=== PATIENT | female | born 1990 | race Two or more races ===

== ENCOUNTER 2020-11-06 15:05 | Outpatient (CLI) | payer OTHER | END 2020-11-06 16:09 | disposition home or self-care (01) | LOC: OFIC 805 15:05 | PROVIDERS: ATTEND Otolaryngology Otology & Neurotology | DX: H80.22 Cochlear otosclerosis, left ear (principal); H90.12 Conductive hearing loss, unilateral, left ear, with unrestricted hearing on the contralateral side ==

== ENCOUNTER 2020-11-10 15:46 | Outpatient (CLI) | payer OTHER ==
[2020-11-24] MEDS ORDERED: DROSPIRENONE-E1 EAC1 PO (16:03)
== END 2020-11-10 16:08 | disposition home or self-care (01) ==
LOC: TOM 15:46
PROVIDERS: ATTEND Otolaryngology Otology & Neurotology
DX: H90.12 Conductive hearing loss, unilateral, left ear, with unrestricted hearing on the contralateral side (principal)

== ENCOUNTER 2020-12-01 05:48 | Day surgery (SDC) | payer OTHER ==
[~2020-12-01 05:48] MED LIST: DROSPIRENONE-E1 EAC1 PO
[2020-12-01] MEDS ORDERED: ZITHROMAX TRI-500 MG PO (09:53)
[2020-12-01] MEDS ORDERED: ZOFRAN8 MG PO (09:54)
[2020-12-01] MEDS ORDERED: MOTION SICKNESS25 M5 PO (09:55)
== END 2020-12-01 14:50 | disposition home or self-care (01) ==
LOC: CIR.AMB 05:48
PROVIDERS: ATTEND Otolaryngology Otology & Neurotology
DX: H90.12 Conductive hearing loss, unilateral, left ear, with unrestricted hearing on the contralateral side (principal); H80.02 Otosclerosis involving oval window, nonobliterative, left ear; H80.22 Cochlear otosclerosis, left ear; Z20.822 Contact with and (suspected) exposure to COVID-19

== ENCOUNTER 2020-12-06 12:04 | Outpatient (CLI) | payer OTHER ==
[~2020-12-06 12:04] MED LIST changes: +MOTION SICKNESS25 M5 PO; +ZITHROMAX TRI-500 MG PO; +ZOFRAN8 MG PO
== END 2020-12-06 13:01 | disposition home or self-care (01) ==
LOC: OFIC 805 12:04
PROVIDERS: ATTEND Otolaryngology Otology & Neurotology
DX: H80.22 Cochlear otosclerosis, left ear (principal); H90.11 Conductive hearing loss, unilateral, right ear, with unrestricted hearing on the contralateral side

== ENCOUNTER 2021-01-03 10:22 | Outpatient (CLI) | payer OTHER | END 2021-01-03 12:41 | disposition home or self-care (01) | LOC: OFIC 805 10:22 | PROVIDERS: ATTEND Otolaryngology Otology & Neurotology | DX: H80.22 Cochlear otosclerosis, left ear (principal); H90.12 Conductive hearing loss, unilateral, left ear, with unrestricted hearing on the contralateral side ==

== ENCOUNTER 2021-08-07 14:21 | Outpatient (CLI) | payer OTHER | END 2021-08-07 16:26 | disposition home or self-care (01) | LOC: PRENATAL 14:21 | PROVIDERS: ATTEND Obstetrics & Gynecology Maternal & Fetal Medicine | DX: Z36.89 Encounter for other specified antenatal screening (principal); O36.80X1 Pregnancy with inconclusive fetal viability, fetus 1; Z3A.13 13 weeks gestation of pregnancy ==

== ENCOUNTER 2021-09-25 13:17 | Outpatient (CLI) | payer OTHER | END 2021-09-25 14:29 | disposition home or self-care (01) | LOC: PRENATAL 13:17 | PROVIDERS: ATTEND Obstetrics & Gynecology Maternal & Fetal Medicine | DX: O35.0XX0 Maternal care for (suspected) central nervous system malformation in fetus, not applicable or unspecified (principal); O35.3XX0 Maternal care for (suspected) damage to fetus from viral disease in mother, not applicable or unspecified ==

== ENCOUNTER 2021-12-18 15:31 | Outpatient (CLI) | payer OTHER | END 2021-12-18 16:18 | disposition home or self-care (01) | LOC: PRENATAL 15:31 | PROVIDERS: ATTEND Obstetrics & Gynecology Maternal & Fetal Medicine | DX: O26.849 Uterine size-date discrepancy, unspecified trimester (principal); O35.0XX0 Maternal care for (suspected) central nervous system malformation in fetus, not applicable or unspecified; O36.8199 Decreased fetal movements, unspecified trimester, other fetus; Z3A.32 32 weeks gestation of pregnancy ==

== ENCOUNTER 2022-01-24 18:30 | Inpatient (IN) | payer OTHER ==
[~2022-01-24] VITALS: Ht 165.1 cm; Wt 75.7 kg
[2022-01-24] MEDS ORDERED: PRENATAL TABLE1 EAC1 (21:47)
[2022-01-24] MEDS ORDERED: FERRETTS I40 MG/15 M (21:48)
[2022-01-24] MEDS ORDERED: MIRALAX17 GM (21:50)
[2022-01-28] MEDS ORDERED: FUSION PLUS CA1 EACH PO (09:57)
== END 2022-01-28 13:37 | disposition home or self-care (01) | DRG 807 ==
LOC: OBS/DEL 18:30 → LDR 19:34 → OBS/DEL 19:34 → OB/GYN 01-26 18:59
PROVIDERS: ADMIT Student in an Organized Health Care Education/Training Program; ATTEND Student in an Organized Health Care Education/Training Program
PROC: 10E0XZZ Delivery of Products of Conception, External Approach (ICD-10-PCS; principal; 2022-01-24)
PROC: 0KQM0ZZ Repair Perineum Muscle, Open Approach (ICD-10-PCS; 2022-01-24)
PROC: 0UQG7ZZ Repair Vagina, Via Natural or Artificial Opening (ICD-10-PCS; 2022-01-24)
PROC: 3E0P7VZ Introduction of Hormone into Female Reproductive, Via Natural or Artificial Opening (ICD-10-PCS; 2022-01-24)
PROC: 3E033VJ Introduction of Other Hormone into Peripheral Vein, Percutaneous Approach (ICD-10-PCS; 2022-01-24)
PROC: 4A1HXCZ Monitoring of Products of Conception, Cardiac Rate, External Approach (ICD-10-PCS; 2022-01-24)
DX: O70.1 Second degree perineal laceration during delivery (principal); Z37.0 Single live birth; O99.820 Streptococcus B carrier state complicating pregnancy; O13.3 Gestational [pregnancy-induced] hypertension without significant proteinuria, third trimester; Z3A.37 37 weeks gestation of pregnancy; Z20.822 Contact with and (suspected) exposure to COVID-19

== ENCOUNTER 2024-06-23 14:39 | Outpatient (CLI) | payer OTHER ==
[~2024-06-23 14:39] MED LIST changes: +FERRETTS I40 MG/15 M; +FUSION PLUS CA1 EACH PO; +MIRALAX17 GM; +PRENATAL TABLE1 EAC1
== END 2024-06-23 14:40 | disposition home or self-care (01) ==
LOC: PRENATAL 14:39
PROVIDERS: ATTEND Obstetrics & Gynecology Maternal & Fetal Medicine
DX: O36.80X0 Pregnancy with inconclusive fetal viability, not applicable or unspecified (principal); Z36.82 Encounter for antenatal screening for nuchal translucency; O09.529 Supervision of elderly multigravida, unspecified trimester; Z3A.13 13 weeks gestation of pregnancy

== ENCOUNTER → 2024-08-20 09:55 | Outpatient (CLI) | payer OTHER | END | disposition home or self-care (01) | LOC: PRENATAL 09:55 | PROVIDERS: ATTEND Obstetrics & Gynecology Maternal & Fetal Medicine | DX: O44.00 Complete placenta previa NOS or without hemorrhage, unspecified trimester (principal); O09.529 Supervision of elderly multigravida, unspecified trimester; Z3A.21 21 weeks gestation of pregnancy ==

== ENCOUNTER 2024-10-12 11:44 | Outpatient (CLI) | payer OTHER | END 2024-10-12 11:46 | disposition home or self-care (01) | LOC: PRENATAL 11:44 | PROVIDERS: ATTEND Obstetrics & Gynecology Maternal & Fetal Medicine | DX: O26.849 Uterine size-date discrepancy, unspecified trimester (principal); O09.529 Supervision of elderly multigravida, unspecified trimester; O99.019 Anemia complicating pregnancy, unspecified trimester; Z3A.29 29 weeks gestation of pregnancy ==

== ENCOUNTER 2024-11-26 10:19 | Outpatient (CLI) | payer OTHER | END 2024-11-26 10:30 | disposition home or self-care (01) | LOC: PRENATAL 10:19 | PROVIDERS: ATTEND Obstetrics & Gynecology Maternal & Fetal Medicine | DX: O26.849 Uterine size-date discrepancy, unspecified trimester (principal); O36.8199 Decreased fetal movements, unspecified trimester, other fetus; O09.529 Supervision of elderly multigravida, unspecified trimester; Z3A.36 36 weeks gestation of pregnancy ==

== ENCOUNTER 2024-12-14 21:00 | Inpatient (IN) | payer OTHER ==
[~2024-12-14] VITALS: Ht 165.1 cm; Wt 78.0 kg
[2024-12-14 21:11] VITALS: BP 145/86
[2024-12-14] MEDS ORDERED: LABETALOL HCL200 MG PO (22:06)
[2024-12-14] MEDS ORDERED: CHILDREN'S ASPI81 MG PO (22:08)
[2024-12-14 22:12] LABS: BASO % 0.5 % (0.1-1.2); EOS # 0.11 (0.04-0.54); EOS % 1.2 % (0.7-7.0); HEMATOCRIT 33.5 % (34.1-44.9); HEMOGLOBIN 10.9 g/dL (11.2-15.7); LYMPH # 2.46 (1.18-3.74); LYMPH % 25.9 % (19.3-53.1); MEAN CORPUSCULAR HEMOGLOBIN 27.2 pg (25.6-32.2); MONO % 6.3 % (4.7-12.5); NEUT # 6.25 (1.56-6.13); NEUT % 65.7 % (34.0-71.1); PLATELET COUNT 285 K/uL (163-369); RED BLOOD COUNT 4.01 M/uL (3.93-5.22); RED CELL DISTRIBUTION WIDTH 13.6 % (11.6-14.4)
[2024-12-14] MEDS ORDERED: MISOPROSTOL 25 MCG/4 ML GEL.W.APPL VAG ONE (22:15)
[2024-12-14 22:32] LABS: INR < 0.93; PARTIAL THROMBOPLASTIN TIME 21.1 SECONDS (22.0-34.0); PROTHROMBIN TIME 9.8 SECONDS (9.0-11.5)
[2024-12-14 22:38] LABS: ALBUMIN 2.7 gm/dL (3.4-5.0); BILIRUBIN TOTAL 0.56 mg/dL (0.3-1.2); CALCIUM 8.7 mg/dL (8.5-10.1); CREATININE SERUM 0.51 mg/dL (0.55-1.02); GFR 136.45; GLOBULINA 3.5 G/DL (2.4-3.5); POTASSIUM 3.48 mEq/L (3.5-5.1); TOTAL PROTEIN 6.2 gm/dL (6.4-8.2)
[2024-12-14] MEDS ORDERED: LABETALOL HCL 200 MG TABLET PO ONE (22:45)
[2024-12-14] MEDS ORDERED: RINGERS SOLUTION,LACTATED 1,000 ML IV SCH (22:45)
[2024-12-14 23:13] LABS: URINE APPEARANCE Clear; URINE BILIRRUBIN Negative (NEGATIVE); URINE BLOOD Negative; URINE COLOR Yellow; URINE GLUCOSE Negative (NEGATIVE); URINE KETONE 15 (NEGATIVE); URINE LEUKOCYTE Negative; URINE NITRATE Negative; URINE PROTEIN Negative (NEGATIVE); URINE UROBILINOGEN 0.2 E.U./dl
[2024-12-14 23:17] LABS: URINE BACTERIA 307.1 uL (0.0-1933); URINE EPITHELIAL CELLS 10.2 uL (0.0-38.8); URINE WBC 5.2 uL (0.0-23.2)
[2024-12-14 23:32] VITALS: BP 129/79
[2024-12-15 00:06] LABS: URINE CAST 0.14 uL (0.0-1.40); URINE RBC 0.4 uL (0.0-20.8)
[2024-12-15 04:00] VITALS: BP 137/89
[2024-12-15 07:48] VITALS: BP 137/89
[2024-12-15] MEDS ORDERED: OXYTOCIN 500 ML IV SCH (08:00)
[2024-12-15 11:35] VITALS: BP 135/86
[2024-12-15] MEDS ORDERED: MORPHINE SULFATE 4 MG/ML CARTRIDGE IV ONE (13:30)
[2024-12-15] MEDS ORDERED: OXYTOCIN 20 UNITS/1000ML RL PIGGYBAG IV ONE (13:48)
[2024-12-15] MEDS ORDERED: LIDOCAINE HCL 1% 10ML VIAL ONE (13:48)
[2024-12-15] MEDS ORDERED: ERYTHROMYCIN BASE OPHT 1GM EACH TUBE OP ONE ×2 (13:48→15:15)
[2024-12-15] MEDS ORDERED: CHLORHEXIDINE GLUCONATE 120 ML BOTTLE TOP ONE (13:48)
[2024-12-15] MEDS ORDERED: IBUprofen 400 MG TABLET PO PRN (14:30)
[2024-12-15] MEDS ORDERED: OxyCODONE HCL 5 MG TABLET (ROXICODONE) PO PRN (14:30)
[2024-12-15] MEDS ORDERED: CHLORHEXIDINE GLUCONATE 120 ML BOTTLE TP SCH (14:30)
[2024-12-15] MEDS ORDERED: OXYTOCIN 1,000 ML IV SCH (14:30)
[2024-12-15 15:33] VITALS: BP 154/87
[2024-12-15] MEDS ORDERED: ACETAMINOPHEN 325 MG TABLET PO SCH (17:00)
[2024-12-15] MEDS ORDERED: CARBOPROST TROMETHAMINE 250 MCG/ML AMPUL IM ONE ×2 (17:57→18:00)
[2024-12-15 20:21] VITALS: BP 145/85
[2024-12-15 23:17] LABS: BASO % 0.2 % (0.1-1.2); EOS # 0.06 (0.04-0.54); EOS % 0.4 % (0.7-7.0); HEMATOCRIT 30.3 % (34.1-44.9); LYMPH # 1.79 (1.18-3.74); NEUT # 12.07 (1.56-6.13); NEUT % 80.9 % (34.0-71.1); PLATELET COUNT 272 K/uL (163-369); RED CELL DISTRIBUTION WIDTH 13.4 % (11.6-14.4)
[2024-12-16 01:56] VITALS: BP 137/91
[2024-12-16 07:21] LABS: BASO % 0.4 % (0.1-1.2); EOS % 0.8 % (0.7-7.0); HEMATOCRIT 27.9 % (34.1-44.9); HEMOGLOBIN 9.1 g/dL (11.2-15.7); LYMPH # 3.07 (1.18-3.74); LYMPH % 26.1 % (19.3-53.1); MONO # 0.91 (0.24-0.82); MONO % 7.7 % (4.7-12.5); NEUT # 7.59 (1.56-6.13); NEUT % 64.5 % (34.0-71.1); PLATELET COUNT 254 K/uL (163-369); RED BLOOD COUNT 3.37 M/uL (3.93-5.22); RED CELL DISTRIBUTION WIDTH 13.8 % (11.6-14.4)
[2024-12-16] MEDS ORDERED: PNV,CALCIUM 72/IRON/FOLIC ACID 1 TAB TABLET PO SCH (09:00)
[2024-12-16] MEDS ORDERED: IRON/V.C/V.B12/FOLIC A/VIT. E 1 CAPL CAPLET PO SCH (09:00)
[2024-12-16] MEDS ORDERED: LABETALOL HCL 200 MG TABLET PO SCH (09:00)
[2024-12-16 12:52] VITALS: BP 140/90
[2024-12-16 17:10] VITALS: BP 127/86
[2024-12-17 03:10] VITALS: BP 131/82
[2024-12-17 09:50] VITALS: BP 130/80
== END 2024-12-17 13:31 | disposition home or self-care (01) | DRG 807 ==
LOC: LDR 21:00 → OB/GYN 12-15 15:07
PROVIDERS: Obstetrics & Gynecology; ADMIT Student in an Organized Health Care Education/Training Program; ATTEND Student in an Organized Health Care Education/Training Program
PROC: 4A1HXCZ Monitoring of Products of Conception, Cardiac Rate, External Approach (ICD-10-PCS; 2024-12-14)
PROC: 3E0P7VZ Introduction of Hormone into Female Reproductive, Via Natural or Artificial Opening (ICD-10-PCS; 2024-12-14)
PROC: 10E0XZZ Delivery of Products of Conception, External Approach (ICD-10-PCS; principal; 2024-12-15)
PROC: 3E033VJ Introduction of Other Hormone into Peripheral Vein, Percutaneous Approach (ICD-10-PCS; 2024-12-15)
DX: O13.4 Gestational [pregnancy-induced] hypertension without significant proteinuria, complicating childbirth (principal); Z37.0 Single live birth; Z3A.37 37 weeks gestation of pregnancy